=== PATIENT | female | born 1970 | race Caucasian/White ===

== ENCOUNTER 2022-07-06 16:03 | Observation (INO) | payer OTHER, SELFPAY ==
[2022-07-06] VITALS (13 sets, daily range): BP systolic 125–161; BP diastolic 60–88; PULSE 74–112; RESP 14–22; TEMP 36.3–36.8; O2SAT 97–100; BMI 26.1
--- NOTE | ~2022-07-06 | CT_ITS ---
EXAMINATION: CTA chest PE protocol DATE: 07/06/2022 23:02 INDICATION: Right scapular pain. Tachycardia. TECHNIQUE: Computed tomography angiography (CTA) of the chest was performed with 100 mL Omnipaque-350 intravenous contrast timed to evaluate the pulmonary arteries. Coronal maximum intensity projection 3D-reconstructions were created by the technologist. Automated exposure control and iterative reconst ruction technique were employed. Exam dose: 265.31 mGy-cm total exam DLP. COMPARISON: July 06, 2022 portable AP chest FINDINGS: The pulmonary arteries are moderately opacified with contrast material, without evidence of pulmonary embolism. No thoracic aortic aneurysm or dissection. Normal heart size. No pericardial or pleural effusion. No hilar or mediastinal mass lesion or lymphadenopathy. The lungs are clear of infiltrate or consolidation or mass density. Normal morphology of the adrenal glands. Included upper abdominal structures are unremarkable. No suspicious osteolytic or osteoblastic lesions. IMPRESSION: No evidence of pulmonary embolism Reviewed, dictated and finalized at [facility]. Reviewed, dictated and finalized at location [facility].
--- NOTE | ~2022-07-06 | XR_ITS ---
EXAMINATION: XR chest 1V portable Exam Date/Time: 07/06/2022 17:22 CDT HISTORY: back pain/chest wall Comparison: 06/25/2015. RESULT: Lines, tubes, and devices: None. Lungs and pleura: Clear. Cardiomediastinal silhouette: Stable. Other: No acute osseous or upper abdominal finding. IMPRESSION: No acute cardiopulmonary process. Reviewed, dictated and finalized at location [facility].
--- NOTE | 2022-07-06 17:24 | ECG_ITS ---
Measurements Intervals [place] Rate: 71 P: 68 ND: 162 QRS: 39 QRSD: 95 T: 41 QT: 381 QTc: 417 Interpretive Statements SINUS RHYTHM BASELINE ARTIFACT POSSIBLE RIGHT VENTRICULAR CONDUCTION DELAY [RSR (QR) IN V1/V2] NONSPECIFIC ST ABNORMALITY NO PREVIOUS ECG AVAILABLE FOR COMPARISON Electronically Signed On 07-07-2022 13:37:33 CDT by Kris Bravo M.D.
[2022-07-06] MEDS: NITROGLYCERIN SL 0.4 MG TABLET SUBLINGUAL ×3 (17:42→22:22)
[2022-07-06] MEDS: ASPIRIN 81 MG CHEWABLE TABLET 324 MG PO (17:42)
--- NOTE | 2022-07-06 17:44 | PC.NURSE ---
Pain gone after 1st subl nitro admin. 2nd dose not required at 5 min va.
[2022-07-06 17:46] LABS: Basophils Absolute Auto 0.1 K/mm3 (0.0-0.1); Eosinophils Absolute Auto 0.3 K/mm3 (0-0.3); Eosinophils Percent Auto 4.5 % (0-4.4); Hematocrit 45.1 % (37.0-47.0); Hemoglobin 14.8 g/dL (12.0-15.0); Immature Granulocyte Absolute 0.01 K/mm3 (0.00-0.031); Immature Granulocyte Percent A 0.1 % (0-0.5); Lymphocytes Absolute Auto 1.69 K/mm3 (0.9-3.2); Lymphocytes Percent Auto 23.6 % (18.3-44.2); Mean Corpuscular HGB Conc 32.8 g/dl (32-36); Mean Corpuscular Hemoglobin 30.8 pg (26-34); Mean Platelet Volume 9.7 fl (7.4-10.4); Monocytes Absolute Auto 0.7 K/mm3 (0.1-0.6); Monocytes Percent Auto 9.2 % (2.6-8.5); Neutrophils Absolute Auto 4.4 K/mm3 (1.3-6.7); Neutrophils Percent Auto 61.6 % (45.5-73.1); Platelet Count Result 291 k/mm3 (150-375); Red Cell Distribution Width 13.7 % (11.5-14.5); White Blood Count 7.2 K/mm3 (4.5-10.0)
--- NOTE | 2022-07-06 17:52 | ECG_ITS ---
Measurements Intervals [place] Rate: 68 P: 59 [place]: 160 QRS: 42 QRSD: 84 T: 41 QT: 404 QTc: 432 Interpretive Statements SINUS RHYTHM POSSIBLE RIGHT VENTRICULAR CONDUCTION DELAY [RSR (QR) IN V1/V2] NONSPECIFIC ST ABNORMALITY BORDERLINE ECG COMPARED TO ECG 07/06/2022 17:37:26 NO SIGNIFICANT CHANGES Electronically Signed On 07-07-2022 13:37:45 CDT by Kris Bravo M.D.
--- NOTE | 2022-07-06 18:00 | ED.BACK ---
HPI - Back Pain/Injury General Chief Complaint: Back Pain/Injury <Vicente Lainez PA-C - Last Filed: 07/06/22 20:03> Stated Complaint: right shoulder blade/back pain <JAJA Dickson Last Filed: 07/06/22 20:03> Time Seen by Provider: 07/06/22 16:20 <Vicente Lainez PA-C - Last Filed: 07/06/22 20:03> Source: patient <JAJA Dickson Last Filed: 07/06/22 20:03> Mode of arrival: ambulatory <JAJA Dickson Last Filed: 07/06/22 20:03> Limitations: no limitations <Vicente Lainez PA-C - Last Filed: 07/06/22 20:03> History of Present Illness HPI Narrative: This is a 52-year-old female with no pertinent PMH who presents to the ED with chief complaint of right shoulder blade and right-sided back pain that began 25 minutes prior to arrival in the ED. Patient states that she was just folding laundry and doing chores when her pain started. She states there was associated sweating, nausea. States it is constant in the right back and does not radiate anywhere else. No specific worsening with exertion. States it has been constant since onset. Denies any injuries. Denies shortness of breath, abdominal pain, nausea. <Vicente Lainez PA-C - Last Filed: 07/06/22 20:03> Related Data Home Medications: Home Medications Medication Instructions Recorded Confirmed vit A 7,160 unit-C 113 mg-E 100 tablet PO 07/06/22 [id number] tablet,delayed rel. <Vicente Lainez PA-C - Last Filed: 07/06/22 20:03> Allergies/Adverse Reactions: Allergies Allergy/AdvReac Type Severity Reaction Status Date / Time No Known Allergies Allergy Unknown Unverified 07/06/22 17:37 <JAJA Dickson Last Filed: 07/06/22 20:03> Review of Systems Review of Systems: CONSTITUTIONAL: Endorses sweats (resolved). Denies fever, chills. EYES: Denies visual changes, redness, or discharge. ENT: Denies rhinorrhea, congestion, sore throat, or otalgia. CARDIOVASCULAR: Denies chest pain, palpitations, or edema. RESPIRATORY: Denies cough or dyspnea. GASTROINTESTINAL: Endorses nausea (resolved). Denies abdominal pain, vomiting, or diarrhea. GENITOURINARY: Denies dysuria or hematuria. SKIN: Denies rash or itching. MUSCULOSKELETAL: Endorses back pain. Denies pain, or myalgia. NEUROLOGIC: Denies headache, numbness, dizziness, or weakness. PSYCHIATRIC: Denies anxiety or depression. <Vicente Lainez PA-C - Last Filed: 07/06/22 20:03> Exam Narrative: GENERAL: Well-appearing, well-nourished, and in no acute distress. HEAD: Normocephalic, atraumatic. EYES: PERRLA and EOMI. ENT: Nares clear, no rhinorrhea or epistaxis. Mucous membranes moist. Oropharynx without tonsillar hypertrophy exudate or other lesions. NECK: Supple. No adenopathy or masses. CHEST: No respiratory distress. Clear to auscultation. No wheezes rales or rhonchi. Somewhat tender in the right posterior scapular area. HEART: Regular rate and rhythm. No murmur heard. Normal peripheral pulses. ABDOMEN: Soft, nontender, nondistended, normal active bowel sounds. EXTREMITIES: No midline CT LS spine tenderness. Normal range of motion. No edema. SKIN: Warm, dry, no rash. NEURO: Alert and oriented x3. No focal deficits. PSYCH: Normal mood and affect. <Vicente Lainez PA-C - Last Filed: 07/06/22 20:03> Course Course Emergency Course: Patient rapidly improved symptomatically after administration of aspirin and 1 dose of sublingual nitro. EKG showed improvement of ST depression in V2 but not in V3. <Vicente Lainez PA-C - Last Filed: 07/06/22 20:03> COMMISSARY MANAGER/PA Physician Supervision For this patient encounter, I reviewed the COMMISSARY MANAGER or PA documentation, treatment plan, and I was responsible for the medical decision making; and I had [id number] time with this patient. <Bronson Murphy MD - Last Filed: 07/06/22 20:22> Vital Signs Vital signs: Vital Signs Temperature 98 F 07/06/22 16:04 Pulse Rate 89 07/06/22 16:04 Respirat
[2022-07-06 18:01] LABS: Alanine Aminotransferase 18 U/L (6-35); Albumin Level 4.6 g/dL (3.5-5.1); Alkaline Phosphatase 55 U/L (38-126); Anion Gap 5 mmol/L (8-16); Aspartate Amino Transferase 27 U/L (14-36); Bilirubin,Total 0.7 mg/dL (0.2-1.3); Blood Urea Nitrogen 17 mg/dL (7-17); Calcium 9.1 mg/dL (8.4-10.2); Carbon Dioxide 27 mmol/L (22-30); Chloride 105 mmol/L (98-107); Estimated CRCL calculation 87 ml/min; Estimated Glomerular Filt Rate > 60; Glucose 105 mg/dL (65-110); Potassium 4.2 mmol/L (3.4-5.0); Sodium 137 mmol/L (137-145)
[2022-07-06 18:11] LABS: Troponin I < 0.012 ng/mL (0.000-0.034)
[2022-07-06 18:29] LABS: D Dimer 0.43 ug/mL (<0.48)
--- NOTE | 2022-07-06 19:30 | PM.IMHP ---
H&P: HPI History of Present Illness Date/Time: 07/06/22 19:30 Chief Complaint: Pain in right scapula. Narrative: This is a very pleasant 52-year-old female without significant medical history presented to the emergency department from home for evaluation of pain in the right scapula. Patient provides the following history. She was in her usual state of health this morning and did not do anything particularly strenuous today. Not long prior to arrival she was folding some towels when she developed sudden onset of pain in the right scapula associated with nausea and sweats. She has never had similar symptoms. She had not noticed any aggravating or alleviating factors. EKG in the emergency department showed subtle ST changes in V3 and V4. She was given a dose of sublingual nitroglycerin which resolved the pain she was having in the right scapula and repeat EKG showed improvement in those subtle changes. She is being admitted in this setting for close monitoring and Cardiology consultation. She has no history of coronary artery disease and denies early onset coronary disease in immediate family members. She is in good shape and has not had any instances of exertional chest pain or shortness of breath. Review of Systems Review of Systems: Twelve systems were reviewed and are negative except for as per HPI. [facility] Past Medical History Medical History Macular degeneration Mild intermittent asthma Surgical History Surgical History History of partial hysterectomy Family History Family History Other Acute myocardial infarction, Onset Age: 45 Social History Social History Social History: Surrogate medical decision maker: Keke Crowder, significant other. Code status: Full code. Smoking status: Never smoker Alcohol intake: current Alcohol use details: Social alcohol use in moderation. Substance use: never Lack of Transportation: No Lack of Food: Never True Current Housing: I Have Housing Concerned About Future Housing: No Difficulty Paying Gas/Electric Bills: No Difficulty Paying for Meds: No Currently Unemployed: No Education: High School Diploma/GED Difficulty w/ Childcare or Family Care: No Additional living arrangements comments: Lives with significant other and their combined 4 children in [place]. Additional occupation/education comments: [employer]. Spiritual care concerns: No Meds Home Medications and Allergies Home Medications Medication Instructions Recorded Confirmed Type albuterol sulfate 90 mcg/actuation 2 puff inhalation Q6H 07/06/22 07/06/22 History aerosol inhaler vit A 7,160 unit-C 113 mg-E 100 1 tablet PO BID 07/06/22 07/06/22 History [id number] tablet,delayed rel. Allergies Allergy/AdvReac Type Severity Reaction Status Date / Time No Known Allergies Allergy Unknown Unverified 07/06/22 17:37 Vital Signs Vital Signs - 24 hr 07/06/22 16:04 07/06/22 17:35 07/06/22 17:39 Temperature 98 F Pulse Rate 89 83 82 Respiratory Rate 15 16 14 Blood Pressure 157/88 H 161/78 H 152/75 H Pulse Oximetry 100 100 100 Oxygen Delivery Room Air 07/06/22 17:44 07/06/22 17:36 07/06/22 17:47 Temperature Pulse Rate 75 78 75 Respiratory Rate 16 15 17 Blood Pressure 135/78 161/78 H 135/78 Pulse Oximetry 99 100 Oxygen Delivery 07/06/22 18:31 07/06/22 19:12 07/06/22 20:06 Temperature 98.3 F 98 F Pulse Rate 74 81 80 Respiratory Rate 22 H 17 14 Blood Pressure 136/74 142/62 H 143/78 H Pulse Oximetry 100 100 97 Oxygen Delivery 07/06/22 20:15 07/06/22 20:30 Temperature 97.4 F L Pulse Rate 81 Respiratory Rate 18 Blood Pressure 131/66 Pulse Oximetry 100 Oxygen Delivery Room Air E
--- NOTE | 2022-07-06 20:20 | ADMGEN ---
This patient, Darian Guerra, was admitted to IMU Room 201-01. Patient/family oriented to hospital policies and general routines including ID bracelet, bed and alarms, visiting hours, pain management, procedures, bathroom and other care routines, personal items, smoking policy, room service/diet, and visiting hours. Information on how to activate the Rapid Response Team has been discussed. Patient/Family are encouraged to report perceived risks to care and to ask questions if they do not understand what they are told or what they should do.
[2022-07-06 21:31] LABS: Troponin I < 0.012 ng/mL (0.000-0.034)
--- NOTE | 2022-07-06 22:29 | ECG_ITS ---
Measurements Intervals [place] Rate: 84 P: -8 [place]: 152 QRS: 26 QRSD: 91 T: 19 QT: 369 QTc: 436 Interpretive Statements SINUS RHYTHM POSSIBLE RIGHT VENTRICULAR CONDUCTION DELAY [RSR (QR) IN V1/V2] NONSPECIFIC ST ABNORMALITY BORDERLINE ECG COMPARED TO ECG 07/06/2022 17:56:45 NO SIGNIFICANT CHANGES Electronically Signed On 07-07-2022 13:43:56 CDT by Kris Bravo M.D.
[2022-07-07] VITALS (8 sets, daily range): BP systolic 111–117; BP diastolic 58–69; PULSE 60–81; RESP 12–20; TEMP 36.3–37.2; O2SAT 97–100
[2022-07-07] MEDS: ENOXAPARIN 80 MG/0.8 ML SYRINGE 75 MG SUB-Q
[2022-07-07] MEDS: METOPROLOL TARTRATE 25 MG TABLET PO
[2022-07-07 01:22] LABS: Troponin I < 0.012 ng/mL (0.000-0.034)
[2022-07-07 05:07] LABS: Cholesterol 184 mg/dL (0-200); HDL Direct 74 mg/dL; Triglycerides 83 mg/dL (<150)
[2022-07-07 05:17] LABS: LDL Cholesterol Direct 91 mg/dL
[2022-07-07] MEDS: ALBUTEROL SULFATE (*SP) AEROSOL 1 PUFF 2 PUFF INHALATION (08:09)
[2022-07-07] MEDS: OPTI-GEN TAB 1 TABLET PO (08:38)
--- NOTE | 2022-07-07 11:31 | PM.CNCAR ---
Assessment and Plan Assessment and plan (1) Pain of right scapula: Code(s): M89.8X1 - Other specified disorders of bone, shoulder Status: Acute Assessment and Plan: Atypical most likely musculoskeletal right posterior upper back pain sharp in nature not run with activity or exertion seemingly improved with nitroglycerin with nonspecific ECG changes. Symptoms probably noncardiac in this patient who is at lower risk without a family history premature atherosclerosis, tobacco abuse history, hypertension, hyperlipidemia, prior CAD and was other chen physically active with no new limitations. She has ruled out for myocardial infarction with negative serial cardiac enzymes. Her ECG does reveal subtle ST abnormalities fairly consistent this admission. As such, we discussed options including pursuing stress test prior to discharge tomorrow morning or if she desires and is comfortable discharge home today with outpatient stress test our office as soon as possible. After extensive discussion and all questions answered the patient's satisfaction she does not wish to remain hospitalized indicating she feels well and if she has recurrent symptoms she will come back. We discussed risks benefits in this regard. Patient has been ambulatory already and has no concerns. Advised to avoid strenuous activity until otherwise advised. Will follow up with her in 1 month as an outpatient which she will pursue a treadmill nuclear stress test in our office. She will contact our office Friday morning to schedule. All questions answered to her satisfaction. Patient verbalized understanding and agrees with plan of care. She may take an aspirin 81 mg daily in the interval at upper caution until results of her stress test are known. Symptoms as described most likely spastic musculoskeletal etiology although can not exclude GI contribution. While less likely cardiac can not exclude underlying CAD and or coronary vasospasm was contribution. Will assess for obstructive CAD with stress as above with recommendation to follow on outpatient basis as per patient wishes. (2) ST segment changes on electrocardiogram: Code(s): R94.31 - Abnormal electrocardiogram [ECG] [EKG] Status: Acute Assessment and Plan: Nondiagnostic without pattern consistent with acute CAD myocardial infarction or STEMI. Negative serial cardiac enzymes. No arrhythmias on telemetry. Discussed his results at length. She is not endorsing heart failure symptoms or any other limitation with activity. History of Present Illness History of Present Illness Consult date/time: Date of service: 07/07/22 11:31 Requesting physician: Pari Brooks PA-C Consult reason: Other (abnormal ECG, back pain) Reason For Visit: Cardiac Workup Narrative: Patient is a very pleasant otherwise healthy 52-year-old female with no significant past medical history was in the emergency department from home with complaints of sudden onset sharp pain under her right scapula. Patient states she was in her usual state of health folding laundry when she had sharp fairly significant pain under her right scapula associated with nausea and some diaphoresis. Symptoms persisted for least [address] herself to the ER after 25 minutes as this would not resolve where she was given sublingual nitroglycerin x1 with some improvement stating her symptoms then resolved after approximately 10 minutes. She fell fine after that and then had recurrence but milder around 10:00 p.m. last night where she received blood sublingual nitroglycerin without benefit then a 2nd which she thinks may have helped but her symptoms resolved in total after 10 minutes. She has never had symptoms similar to this in the past. She has no exertional chest pain, shortness of breath or exertional back pain. She denies recent injuries, illnesses, exacerbation with movement or position. She denies near-syncope syncope or palpitat
--- NOTE | 2022-07-07 11:53 | PM.DS ---
DS: Admitting Diagnosis Discharge Date July 07, 2022 Admitting Diagnosis Chest pain DS: Discharge Diagnosis Discharge Diagnosis (1) Pain of right scapula: Code(s): M89.8X1 - Other specified disorders of bone, shoulder Status: Acute (2) Acute electrocardiogram changes: Code(s): R94.31 - Abnormal electrocardiogram [ECG] [EKG] Status: Acute DS: Summary Hospital Course Hospital Course: Chest pain, cardiology evaluated the patient and recommended outpatient stress test. Workup other otherwise unrevealing in the hospital. Patient can be discharged follow-up cardiology Time Spent with Patient Time attestation: Total time spent providing and/or coordinating discharge services: Exam Narrative: General: A well-developed female sitting up in bed in no distress. Weight: 73.4 kg. BMI: 26.1. HEENT: Normocephalic, atraumatic. Wearing corrective lenses. PERRL, EOMI. Sclera anicteric. Oral mucosa moist. Oropharynx clear. Neck: Supple. No JVD. Respiratory: Lungs are clear to auscultation bilaterally. Cardiovascular: Regular rate and rhythm with S1-S2. Gastrointestinal: Abdomen is soft, nontender, and nondistended with positive bowel sounds. Skin: Warm and dry. No rash or lesions on limited exam. Extremities: No cyanosis, clubbing, or edema. Radial and pedal pulses intact. No palpable knots or cords. Negative Swathi sign bilaterally. Musculoskeletal: No tenderness to palpation over the right scapula. No pain with range of motion of the right shoulder. Neurological: Alert. Cranial nerves 2-12 are grossly intact. No gross focal deficits to casual conversation. Psychiatric: Pleasant and cooperative with normal mood and affect. Judgment and insight intact. DS: Data Data Completed and Pending Labs on day of discharge: Labs from last 24 hours 07/07/22 07/07/22 07/06/22 03:35 00:25 21:03 WBC RBC Hgb Hct MCV MCH MCHC RDW Plt Count MPV Immature Gran % (Auto) Neut % (Auto) Lymph % (Auto) [place] % (Auto) Eos % (Auto) Baso % (Auto) Lymph # (Auto) [place] # (Auto) Eos # (Auto) Baso # (Auto) Abs Immat Gran (auto) Absolute Neuts (auto) Absolute Nucleated RBC Nucleated RBC % D-Dimer Sodium Potassium Chloride Carbon Dioxide Anion Gap BUN Creatinine Estim Creat Clear Calc Estimated GFR Glucose Calcium Total Bilirubin AST ALT Alkaline Phosphatase Troponin I < 0.012 < 0.012 Total Protein Albumin Triglycerides 83 Cholesterol 184 LDL Cholesterol Direct 91 HDL Direct 74 07/06/22 07/06/22 07/06/22 17:41 17:41 17:41 WBC 7.2 RBC 4.80 Hgb 14.8 Hct 45.1 MCV 94.0 MCH 30.8 MCHC 32.8 RDW 13.7 Plt Count 291 MPV 9.7 Immature Gran % (Auto) 0.1 Neut % (Auto) 61.6 Lymph % (Auto) 23.6 [place] % (Auto) 9.2 H Eos % (Auto) 4.5 H Baso % (Auto) 1.0 Lymph # (Auto) 1.69 [place] # (Auto) 0.7 H Eos # (Auto) 0.3 Baso # (Auto) 0.1 Abs Immat Gran (auto) 0.01 Absolute Neuts (auto) 4.4 Absolute Nucleated RBC 0.0 Nucleated RBC % 0.0 D-Dimer 0.43 Sodium 137 Potassium 4.2 Chloride 105 Carbon Dioxide 27 Anion Gap 5 L BUN 17 Creatinine 0.60 L Estim Creat Clear Calc 87 Estimated GFR > 60 Glucose 105 Calcium 9.1 Total Bilirubin 0.7 AST 27 ALT 18 Alkaline Phosphatase 55 Troponin I < 0.012 Total Protein 8.0 Albumin 4.6 Triglycerides Cholesterol LDL Cholesterol Direct HDL Direct Discharge Plan Discharge Attending physician on discharge: Rip Deras Consulting providers: Kris Bravo Discharging Clinician: Rip Deras Patient Disposition: Home, Self-Care Activity: no preference Diet: as tolerated Patient Instructions: Antibiotic Form, Chest Pain (DC), Pain Management (DC), Back Pa
== END 2022-07-07 12:42 | disposition home or self-care (01) ==
LOC: ANHED 18:55 → ANHIMU 21:15
PROVIDERS: Physician Assistant; Admitting Provider Internal Medicine; Emergency Provider Physician Assistant; Visit Provider Chiropractor
DX: M89.8X1 Other specified disorders of bone, shoulder (principal); R94.31 Abnormal electrocardiogram [ECG] [EKG]; M54.9 Dorsalgia, unspecified; R61 Generalized hyperhidrosis; R11.0 Nausea; H35.30 Unspecified macular degeneration; J45.20 Mild intermittent asthma, uncomplicated; F10.90 Alcohol use, unspecified, uncomplicated; R00.0 Tachycardia, unspecified; Z79.51 Long term (current) use of inhaled steroids; Z79.899 Other long term (current) drug therapy
CPT/HCPCS: 36415; 71045; 71275; 80053; 80061; 84484; 85025; 85380; 93005; 94640; 96372; 99285; A9270; G0378; J1650; Q9967

== ENCOUNTER 2024-03-26 08:41 | Emergency (ER) | payer OTHER, SELFPAY ==
[2024-03-26 08:55] VITALS: BP 125/87; PULSE 71; RESP 16; TEMP 36.9; O2SAT 98
--- NOTE | 2024-03-26 09:33 | ED_ITS ---
HPI - URI/Sore Throat General Chief Complaint: Upper Respiratory Infection Stated Complaint: Cough Time Seen by Provider: 03/26/24 09:33 Source: patient, RN notes reviewed and old records reviewed Mode of arrival: ambulatory Limitations: no limitations History of Present Illness HPI Narrative: 54 year old female who presents [facility] with 2 week suration of sinus congestion and drainage with some noted cough. Patient reports that she has been taking Mucine, Robittussin and has been using her inhaler with history of asthma reported. Patient reports no acute shortness of breath states cough worse at night .Patient reports no known fevers chills or body aches. MD elicited complaint: cough, rhinorrhea and nasal congestion Pertinent past history: asthma Onset (ago): week(s) (2) Able to tolerate fluids by mouth: Yes Treatments prior to arrival: other (Mucinex, Robitussin, ) Related Data Home Medications ?Medication ?Instructions ?Recorded ?Confirmed ?Last Taken ?Type albuterol sulfate 90 mcg/actuation 2 puff inhalation Q6H 07/06/22 09/01/23 07/04/22 History aerosol inhaler vitamins A,C,G-vvth-nxyzxe 4,296 1 cap PO BID 08/19/22 09/01/23 Unknown History mcg-226 mg-90 mg capsule (ICaps AREDS) Allergies Allergy/AdvReac Type Severity Reaction Status Date / Time No Known Allergies Allergy Unknown Verified 09/01/23 08:24 Review of Systems Review of Systems: CONSTITUTIONAL:Reports some malaise, no chills, sweats, or fever. EYES: Denies visual changes, redness, or discharge. ENT: Reports rhinorrhea, congestion, sinus pain, no otalgia and no sore throat. CARDIOVASCULAR: Denies chest pain, palpitations, or edema. RESPIRATORY: Reports cough.? Denies dyspnea. GASTROINTESTINAL: Denies abdominal pain, nausea, vomiting, diarrhea SKIN: Denies rash or itching. MUSCULOSKELETAL: Denies myalgia. NEUROLOGIC: Denies headache. All systems reviewed & are unremarkable except as noted in HPI and below PMFSH Past Medical History Medical History Mild intermittent asthma Macular degeneration Surgical History Surgical History S/P breast biopsy, right (~10/2020) right breast microcalcifications / Benign S/P nasal surgery History of partial hysterectomy (~07/2003) Family History Family History Other Acute myocardial infarction, Onset Age: 45 Mother Breast cancer, Onset Age: 64 Hypertension Dementia Alzheimer disease Father Alzheimer disease Social History Social History Social History: Surrogate medical decision maker: Keke Crowder, significant other. Code status: Full code. Smoking status: Never smoker Second hand tobacco smoke exposure: No Alcohol intake: current Drinks per week: 2 Alcohol use details: Social alcohol use in moderation. Substance use: never Substance use type: does not use Do You Feel Safe in your Home?: Yes Lack of Transportation: No Lack of Food: Never True Current Housing: I Have Housing Concerned About Future Housing: No Difficulty Paying Gas/Electric Bills: No Difficulty Paying for Meds: No Currently Unemployed: No Education: High School Diploma/GED Difficulty w/ Childcare or Family Care: No Living arrangements: other Additional living arrangements comments: Lives with significant other and their combined 4 children in [place]. Occupation/Education: occupation Additional occupation/education comments: [employer]. Gender identity (if verbalized by the patient): Female Sexual Orientation (if Verbalized by the Patient): Lesbian, Gonsalves, or Homosexual Spiritual care concerns: No Comments At time of signature, agree with nursing past medical, surgical, social and family history. There is no relevant family history pertinent to the presenting complaint Exam Narrative: GENERAL: Well-appearing, well-nourished, and in no acute distress. HEAD: Normocephalic EYES: PERRLA, conjunctivae clear ENT: Nares clear, turbinates edematous and erythematous, clear discharge. Mucous membranes moist. TM pearly downs with dull light reflex bilaterally; no tragal tenderness. Oropharynx erythematous without lesions. Tonsils not enlarged and without exudate, no drooling, no hoarseness, no trismus, uvula midline, post nasal drainage NECK: Supple. No lymphadenopathy CHEST: Clear to auscultation, breath sounds equal. No wheezing, rhonchi, rales, or stridor. No respiratory distress, speaks in full sentences.cough noted SAO2 98% on room air HEART: Regular rate and rhythm. No murmur heard. SKIN: Warm, dry, no rash. NEURO: Alert and oriented x3. PSYCH: Normal mood and affect Course Course Emergency Course: Patient is aware of diagnosis, understands and agrees to treatment plan.? Antici patory guidance given.? Patient agrees to follow-up as directed and is aware of reasons to seek care at the emergency department. Portions of this record may have been created with voice recognition software Level of Care: Express Care Visit Vital Signs Vital signs: Vital Signs Temperature 36.9 C 03/26/24 08:55 Pulse Rate 71 03/26/24 08:55 Respiratory Rate 16 03/26/24 08:55 Blood Pressure 125/87 03/26/24 08:55 Pulse Oximetry 98 03/26/24 08:55 Temperature 36.9 C 03/26/24 08:55 Pulse Rate 71 03/26/24 08:55 Respiratory Rate 16 03/26/24 08:55 Blood Pressure 125/87 03/26/24 08:55 Pulse Oximetry 98 03/26/24 08:55 Oxygen Delivery Room Air 03/26/24 09:15 Reviewed MDM - URI/Sore Throat MDM Narrative Medical decision making narrative: Differential diagnosis considered: Bush virus, strep pharyngitis, allergic rhinitis, upper respiratory tract infection, sinusitis, rhinosinusitis, n asopharyngitis. viral pharyngitis, otitis media, otitis externa, pneumonia, bronchitis, viral cough syndrome, viral syndrome, and influenza.? Exam findings show no acute concerns or changes; patient is non-toxic appearing and is in no distress.? Patient is appropriate for outpatient treatment and follow-up. Differential Diagnosis Differential diagnosis: Likely upper respiratory infection, sinusitis, viral infection and other (acute cough) Medical Records Attestation: I reviewed the patient's medical records. Lab Data Attestation: I reviewed the patient's lab results. Critical Care Time Critical Care Time Critical Care Time: No Discharge Plan Discharge Clinical Impression: Sinusitis, Acute cough Patient Disposition: Home, Self-Care Condition: Stable Instructions: Antibiotic Form, Sinusitis (ED), Acute Cough (ED) Additional Instructions: Increase fluids especially juices and water Apsg-dry-fzvqbqf cough and cold medicine of your choice for your symptoms Zyrtec Claritin or Ruth Ann daily Continue your inhaler/nebulizer as directed Steroids as directed--take with food heat to the face 20-30 minutes 4-6 times a day for pain Salt water gargles, throat lozenges or throat sprays as desired Antibiotic as directed--finished the medication If your symptoms persist, change or worsen significantly before you can contact your personal physician then please, without delay, go to the emergency department for further evaluation. Follow-up with PCP in 7-10 days or sooner if needed Follow up with PCP soon in regards to your blood pressure which is elevated above threshold for referral. Blood pressure above 120/80 may indicate pre- hypertension. minimal elevation at 125/87 Patient Language: Nauruan Prescriptions: New amoxicillin-pot clavulanate 875-125 mg tablet 1 tablet PO Q12H Qty: 20 0RF Rx Instructions: take with food, recommend taking probiotic or eating activia yogurt while on this medication prednisone 50 mg tablet 50 mg PO DAILY Qty: 5 0RF Rx Instructions: take in the a.m. with food fluconazole 150 mg tablet 150 mg PO ONCE Qty: 2 0RF Rx Instructions: as a single dose may repeat in 72 hours x1 if needed No Action ICaps AREDS 4,296 mcg-226 mg-90 mg capsule 1 cap PO BID albuterol sulfate 90 mcg/actuation HFA aerosol inhaler 2 puff INHALATION Q6H estradiol 0.5 mg tablet 1 mg PO DAILY Qty: 90 3RF Follow-up/Referrals: PHYSICIAN,WEAR[employer]PAREL ASSEMBLER [Primary Care Provider] - Time of Disposition: 09:51 Quality Liborio Coma Scale Eyes: Open Verbal: Oriented and Alert Motor: Follows Commands [place] Coma Total Score: 15
== END 2024-03-26 09:53 | disposition home or self-care (01) ==
PROVIDERS: Emergency Provider Registered Nurse
DX: J32.9 Chronic sinusitis, unspecified (principal); R05.1 Acute cough
CPT/HCPCS: 99213; G0463

== ENCOUNTER 2024-05-11 16:49 | Emergency (ER) | payer OTHER, SELFPAY ==
--- NOTE | 2024-05-11 16:49 | ED.EAR ---
HPI - Ear Problem General Chief complaint: Ear Stated complaint: Ear Pain Source: patient and RN notes reviewed Mode of arrival: ambulatory Limitations: no limitations History of Present Illness HPI Narrative: Patient is a 54-year-old female who presents to the [facility] with complaints of left ear pain. Patient states that she has had left ear pain week. She states that she has just started noticing decreased hearing out of the left ear. She denies ear drainage. Denies recent illness or fever. Related Data Home Medications ?Medication ?Instructions ?Recorded ?Confirmed ?Last Taken ?Type albuterol sulfate 90 mcg/actuation 2 puff inhalation Q6H 07/06/22 09/01/23 07/04/22 History aerosol inhaler vitamins A,C,M-mopf-swijug 4,296 1 cap PO BID 08/19/22 09/01/23 Unknown History mcg-226 mg-90 mg capsule (ICaps AREDS) Allergies Allergy/AdvReac Type Severity Reaction Status Date / Time No Known Allergies Allergy Unknown Verified 05/11/24 17:04 Review of Systems Review of Systems: CONSTITUTIONAL: Denies fever, chills, or sweats. EYES: Denies visual changes, redness, or discharge. ENT: Reports otalgia but denies sore throat CARDIOVASCULAR: Denies chest pain, palpitations, or edema. RESPIRATORY: Denies cough or dyspnea. GASTROINTESTINAL: Denies abdominal pain, nausea, vomiting, or diarrhea. GENITOURINARY: Denies dysuria or hematuria. SKIN: Denies rash or itching. MUSCULOSKELETAL: Denies back pain, joint pain, or myalgia. NEUROLOGIC: Denies headache, numbness, or weakness. Pertinent positives per HPI. [facility] Past Medical History Medical History Mild intermittent asthma Macular degeneration Surgical History Surgical History S/P breast biopsy, right (~10/2020) right breast microcalcifications / Benign S/P nasal surgery History of partial hysterectomy (~07/2003) Family History Family History Other Acute myocardial infarction, Onset Age: 45 Mother Breast cancer, Onset Age: 64 Hypertension Dementia Alzheimer disease Father Alzheimer disease Social History Social History Social History: Surrogate medical decision maker: Keke Crowder, significant other. Code status: Full code. Smoking status: Never smoker Second hand tobacco smoke exposure: No Alcohol intake: current Drinks per week: 2 Alcohol use details: Social alcohol use in moderation. Substance use: never Substance use type: does not use Do You Feel Safe in your Home?: Yes Lack of Transportation: No Lack of Food: Never True Current Housing: I Have Housing Concerned About Future Housing: No Difficulty Paying Gas/Electric Bills: No Difficulty Paying for Meds: No Currently Unemployed: No Education: High School Diploma/GED Difficulty w/ Childcare or Family Care: No Living arrangements: other Additional living arrangements comments: Lives with significant other and their combined 4 children in [place]. Occupation/Education: occupation Additional occupation/education comments: [employer]. Gender identity (if verbalized by the patient): Female Sexual Orientation (if Verbalized by the Patient): Lesbian, Gonsalves, or Homosexual Spiritual care concerns: No Comments At the time of my signature, I reviewed and agree with the nursing past medical, surgical, social, and family history. There is no relevant family history pertinent to the patient complaint. Exam Narrative: GENERAL: This is a well-nourished, well-developed patient, in no apparent distress. HEAD: normocephalic, atraumatic. EYES: PERRL. Sclera clear/white. Vision is grossly intact. EARS: External ears normal, auditory canals clear and without drainage, Right TM normal without perforation. Left TM erythematous. NOSE: External nose normal with no obvious nasal discharge, nares without redness, no rhinorrhea. THROAT: Mucous membranes moist, posterior pharynx clear. NECK: Neck supple, non-tender without lymphadenopathy, masses or thyromegaly. CARDIOVASCULAR: Regular rate and rhythm without murmurs, gallops, or rubs. RESPIRATORY: Clear to auscultation. Breath sounds equal bilaterally. No wheezes, rales, or rhonchi. GASTROINTESTINAL: Abdomen soft, non-tender, nondistended. Bowel sounds are active. No hepato-splenomegaly, or palpable masses. No guarding. SKIN: warm, intact with no suspicious lesions or rash, good texture and turgor. NEURO: awake, alert, and oriented to person, place and time. There were no obvious focal neurologic abnormalities. EXTREMITIES: No clubbing, cyanosis, or edema. No joint tenderness, effusion, or edema noted. BACK: Nontender without deformity or crepitance. No flank tenderness. Course Course Level of Care: Express Care Visit Vital Signs Vital signs: Vital Signs Temperature 97.6 F 05/11/24 16:56 Pulse Rate 72 05/11/24 16:56 Respiratory Rate 16 05/11/24 16:56 Blood Pressure 135/76 05/11/24 16:56 Pulse Oximetry 100 05/11/24 16:56 Temperature 97.6 F 05/11/24 16:56 Pulse Rate 72 05/11/24 16:56 Respiratory Rate 16 05/11/24 16:56 Blood Pressure 135/76 05/11/24 16:56 Pulse Oximetry 100 05/11/24 16:56 Reviewed Medical Decision Making MDM Narrative Medical decision making narrative: Take antibiotics as directed. May given ibuprofen and/or Tylenol as needed for pain and/or fever. Follow up with primary care provider in 7-10 days to have ear rechecked. Differential Diagnosis Differential Diagnosis: otitis media, otitis externa, cerumen impaction Vital Signs Vital Signs: Vital Signs Temperature 97.6 F 05/11/24 16:56 Pulse Rate 72 05/11/24 16:56 Respiratory Rate 16 05/11/24 16:56 Blood Pressure 135/76 05/11/24 16:56 Pulse Oximetry 100 05/11/24 16:56 Temperature 97.6 F 05/11/24 16:56 Pulse Rate 72 05/11/24 16:56 Respiratory Rate 16 05/11/24 16:56 Blood Pressure 135/76 05/11/24 16:56 Pulse Oximetry 100 05/11/24 16:56 Critical Care Time Critical Care Time Critical Care Time: No Discharge Plan Discharge Clinical Impression: Acute left otitis media Patient Disposition: Home, Self-Care Condition: Stable Instructions: Antibiotic Form, Ear Infection (ED) Additional Instructions: Take antibiotics as directed. May given ibuprofen and/or Tylenol as needed for pain and/or fever. Follow up with primary care provider in 7-10 days to have ear rechecked. Patient Language: Montenegrin Prescriptions: New amoxicillin-pot clavulanate 875-125 mg tablet 1 tablet PO Q12H 10 Days Qty: 20 0RF No Action amoxicillin-pot clavulanate 875-125 mg tablet 1 tablet PO Q12H Qty: 20 0RF Rx Instructions: take with food, recommend taking probiotic or eating activia yogurt while on this medication prednisone 50 mg tablet 50 mg PO DAILY Qty: 5 0RF Rx Instructions: take in the a.m. with food fluconazole 150 mg tablet 150 mg PO ONCE Qty: 2 0RF Rx Instructions: as a single dose may repeat in 72 hours x1 if needed ICaps AREDS 4,296 mcg-226 mg-90 mg capsule 1 cap PO BID albuterol sulfate 90 mcg/actuation HFA aerosol inhaler 2 puff INHALATION Q6H estradiol 0.5 mg tablet 1 mg PO DAILY Qty: 90 1RF Follow-up/Referrals: UNKNOWN,DOCTOR [Non-Staff] - Time of Disposition: 17:05
[2024-05-11 16:56] VITALS: BP 135/76; PULSE 72; RESP 16; TEMP 36.4; O2SAT 100
== END 2024-05-11 17:09 | disposition home or self-care (01) ==
PROVIDERS: Emergency Provider Nurse Practitioner
DX: H66.92 Otitis media, unspecified, left ear (principal); J45.909 Unspecified asthma, uncomplicated; H35.30 Unspecified macular degeneration; Z90.711 Acquired absence of uterus with remaining cervical stump
CPT/HCPCS: 99213; G0463

== ENCOUNTER 2024-06-29 18:36 | Emergency (ER) | payer OTHER, SELFPAY ==
[2024-06-29 18:46] VITALS: BP 141/79; PULSE 72; RESP 16; TEMP 36.6; O2SAT 100
--- NOTE | 2024-06-29 18:56 | ED_ITS ---
HPI - Ear Problem General Chief complaint: Ear Stated complaint: EARACHE Source: patient Mode of arrival: ambulatory Limitations: no limitations History of Present Illness HPI Narrative: 54 y/o female presented for c/o left ear pain. States the pain has not fully improved since she was treated for an ear infection 05/11/24. Endorses occasional 'foggy hearing.' Denies tinnitus, ear drainage, dizziness, nasal conges tion/drainage, headache or fever. Not taking anything for pain because she is on semaglutide which causes upset stomach. MD Complaint: ear pain Related Data Home Medications ?Medication ?Instructions ?Recorded ?Confirmed ?Last Taken ?Type albuterol sulfate 90 mcg/actuation 2 puff inhalation Q6H 07/06/22 09/01/23 07/04/22 History aerosol inhaler vitamins A,C,E-uhhb-lzcatx 4,296 1 cap PO BID 08/19/22 09/01/23 Unknown History mcg-226 mg-90 mg capsule (ICaps AREDS) Allergies Allergy/AdvReac Type Severity Reaction Status Date / Time No Known Allergies Allergy Unknown Verified 06/29/24 18:52 Review of Systems Review of Systems: CONSTITUTIONAL: Denies malaise, chills, or fever. EYES: Denies visual changes, redness, or discharge. ENT: Denies rhinorrhea, congestion, sinus pain, and sore throat. Reports ear pain CARDIOVASCULAR: Denies chest pain, palpitations, or edema. RESPIRATORY: Denies cough or dyspnea. GASTROINTESTINAL: Denies abdominal pain, nausea, vomiting, diarrhea SKIN: Denies rash or itching. MUSCULOSKELETAL: Denies myalgia. NEUROLOGIC: Denies headache. All systems reviewed & are unremarkable except as noted in HPI and below PMFSH Past Medical History Medical History Mild intermittent asthma Macular degeneration Surgical History Surgical History S/P breast biopsy, right (~10/2020) right breast microcalcifications / Benign S/P nasal surgery History of partial hysterectomy (~07/2003) Family History Family History Other Acute myocardial infarction, Onset Age: 45 Mother Breast cancer, Onset Age: 64 Hypertension Dementia Alzheimer disease Father Alzheimer disease Social History Social History Social History: Surrogate medical decision maker: Keke Crowder, significant other. Code status: Full code. Smoking status: Never smoker Second hand tobacco smoke exposure: No Alcohol intake: current Drinks per week: 2 Alcohol use details: Social alcohol use in moderation. Substance use: never Substance use type: does not use Do You Feel Safe in your Home?: Yes Lack of Transportation: No Lack of Food: Never True Current Housing: I Have Housing Concerned About Future Housing: No Difficulty Paying Gas/Electric Bills: No Difficulty Paying for Meds: No Currently Unemployed: No Education: High School Diploma/GED Difficulty w/ Childcare or Family Care: No Living arrangements: other Additional living arrangements comments: Lives with significant other and their combined 4 children in [place]. Occupation/Education: occupation Additional occupation/education comments: [employer]. Gender identity (if verbalized by the patient): Female Sexual Orientation (if Verbalized by the Patient): Lesbian, Gonsalves, or Homosexual Spiritual care concerns: No Comments At time of signature, agree with nursing past medical, surgical, social and family history. There is no relevant family history pertinent to the presenting complaint Exam Narrative: GENERAL: Well-appearing EYES: conjunctivae clear ENT: Nares clear. Mucous membranes moist. right TM pearly downs with dull light reflex;Left TM mildly erythematous with clear effusion no tragal tenderness. NECK: Supple. No lymphadenopathy CHEST: Clear to auscultation, breath sounds equal. HEART: Regular rate and rhythm. SKIN: Warm, dry, no rash. NEURO: Alert and oriented x3. PSYCH: Normal mood and affect Course Course Emergency Course: Patient is aware of diagnosis, understands and agrees to treatment plan. Anticipatory guidance given. Patient agrees to follow-up as directed and is aware of reasons to seek care at the emergency department. Portions of this record may have been created with voice recognition software Level of Care: Express Care Visit Vital Signs Vital signs: Vital Signs Temperature 98 F 06/29/24 18:46 Pulse Rate 72 06/29/24 18:46 Respiratory Rate 16 06/29/24 18:46 Blood Pressure 141/79 H 06/29/24 18:46 Pulse Oximetry 100 06/29/24 18:46 Temperature 98 F 06/29/24 18:46 Pulse Rate 72 06/29/24 18:46 Respiratory Rate 16 06/29/24 18:46 Blood Pressure 141/79 H 06/29/24 18:46 Pulse Oximetry 100 06/29/24 18:46 Reviewed Medical Decision Making MDM Narrative Medical decision making narrative: Discussed physical exam findings, c/w serous otitis, without acute infection at this time. Advised supportive measures and signs/symptoms to go to the ER. Patient is appropriate for outpatient treatment and follow-up. Differential Diagnosis Differential Diagnosis: Coronavirus, strep pharyngitis, allergic rhinitis, upper respiratory tract infection, sinusitis, rhinosinusitis, nasopharyngitis, viral pharyngitis, otitis media, otitis externa, eustachian tube dysfunction, foreign body, cerumen impaction. Vital Signs Vital Signs: Vital Signs Temperature 98 F 06/29/24 18:46 Pulse Rate 72 06/29/24 18:46 Respiratory Rate 16 06/29/24 18:46 Blood Pressure 141/79 H 06/29/24 18:46 Pulse Oximetry 100 06/29/24 18:46 Temperature 98 F 06/29/24 18:46 Pulse Rate 72 06/29/24 18:46 Respiratory Rate 16 06/29/24 18:46 Blood Pressure 141/79 H 06/29/24 18:46 Pulse Oximetry 100 06/29/24 18:46 Discharge Plan Discharge Clinical Impression: Acute serous otitis media Patient Disposition: Home, Self-Care Condition: Stable Instructions: Antibiotic Form, Fluid In The Ear (Serous Otitis Media) (ED) Additional Instructions: Recommendations: antihistamine such as Zyrtec or Ruth Ann Flonase nasal spray, 1 spray in each nostril once daily until symptoms improve increase humidity of the air at home. Tylenol every 8 hours as needed to reduce pain. You can take ibuprofen if it does not upset your stomach If no improvement with the above measures, you can start the antibiotic Please schedule a follow-up visit with your personal physician in one week. If your symptoms persist, change or worsen significantly, go to the emergency department for further evaluation. Patient Language: Kinyarwanda Prescriptions: New amoxicillin-pot clavulanate 875-125 mg tablet 1 tablet PO Q12H 7 Days Qty: 14 0RF No Action ICaps AREDS 4,296 mcg-226 mg-90 mg capsule 1 cap PO BID albuterol sulfate 90 mcg/actuation HFA aerosol inhaler 2 puff INHALATION Q6H estradiol 0.5 mg tablet 1 mg PO DAILY Qty: 90 1RF Follow-up/Referrals: Naida,Elis [Other] Time of Disposition: 18:59
== END 2024-06-29 19:00 | disposition home or self-care (01) ==
PROVIDERS: Emergency Provider Nurse Practitioner Family
DX: H65.02 Acute serous otitis media, left ear (principal); J45.909 Unspecified asthma, uncomplicated; H35.30 Unspecified macular degeneration; Z90.711 Acquired absence of uterus with remaining cervical stump
CPT/HCPCS: 99213; G0463